=== PATIENT | male | born 1975 | race Caucasian/White ===

== ENCOUNTER 2017-11-01 21:04 | Emergency (ER) | payer SELFPAY | END 2017-11-01 21:14 | disposition left against medical advice (07) | LOC: ER 21:04 | DX: J02.9 Acute pharyngitis, unspecified (principal); Z53.21 Procedure and treatment not carried out due to patient leaving prior to being seen by health care provider ==

== ENCOUNTER 2017-11-02 03:39 | Inpatient (IN) | payer OTHER ==
[2017-11-02 04:07] LABS: HEMATOCRIT 47.4 % (39.0-53.0); HEMOGLOBIN 16.4 g/dL (13.0-17.5); MEAN CORPUSCULAR HEMOGLOBIN 34 pg (25-35); MEAN CORPUSCULAR HGB CONC 35 g/dL (31-37); MEAN CORPUSCULAR VOLUME 97 fL (79-100); PLATELET COUNT 173 x10^3/uL (140-400); RED BLOOD COUNT 4.89 x10^6/uL (4.30-5.70); RED CELL DISTRIBUTION WIDTH 13.5 % (11.5-14.5); WHITE BLOOD COUNT 8.1 x10^3/uL (4.0-11.0)
[2017-11-02 04:14] LABS: ANION GAP 5 (6-14); BLOOD UREA NITROGEN 11 mg/dL (8-26); CALCIUM 8.4 mg/dL (8.5-10.1); CARBON DIOXIDE 32 mmol/L (21-32); CHLORIDE 106 mmol/L (98-107); GFR 98.2; GLUCOSE 128 mg/dL (70-99); POTASSIUM 3.6 mmol/L (3.5-5.1); SODIUM 143 mmol/L (136-145)
[2017-11-02 04:19] LABS: INR 1.2 (0.8-1.1); PROTHROMBIN TIME PATIENT 14.2 SEC (11.7-14.0)
[2017-11-02 04:20] LABS: PARTIAL THROMBOPLASTIN TIME 36 SEC (24-38)
[2017-11-02 04:23] LABS: POC GLUCOSE 122 mg/dL (70-99)
[2017-11-02] MEDS: ASPIRIN 325 MG TABLET PO (05:46)
[2017-11-02] MEDS ORDERED: MORPHINE SULFATE 2 MG/ML DISP.SYRIN. IV (11:15)
[2017-11-02] MEDS ORDERED: ACETAMINOPHEN 325 MG TABLET. PO (11:15)
[2017-11-02] MEDS ORDERED: DOCUSATE SODIUM 100 MG CAPSULE. PO (11:15)
[2017-11-02] MEDS ORDERED: traMADol 50 MG TABLET PO (11:15)
[2017-11-02] MEDS ORDERED: ONDANSETRON PF 4 MG/2 ML VIAL. IV (11:15)
[2017-11-02] MEDS ORDERED: hydrALAZINE 20 MG/ML VIAL. IVP (11:15)
[2017-11-02] MEDS: NICOTINE 21MG PATCH. TD (11:48)
[2017-11-02] MEDS: GADOBUTROL 10 MMOL/10 ML VIAL IV (16:17)
[2017-11-02] MEDS: ENOXAPARIN 40 MG/0.4 ML SYRINGE. SQ (17:22)
[2017-11-02 18:30] LABS: BARBITURATES NEG (NEG); BENZODIAZEPINES NEG (NEG); CANNABINOIDS NEG (NEG); COCAINE NEG (NEG); METHADONE NEG (NEG); OPIATES NEG (NEG); PHENCYCLIDINE NEG (NEG)
[2017-11-02 18:32] LABS: AMPHETAMINE/METHAMPHETAMINE NEG (NEG); ETHANOL, URINE NEG (NEG)
[2017-11-02] MEDS: GABAPENTIN 100 MG CAPSULE. PO (21:18)
[2017-11-03 07:54] LABS: ADD MAN DIFF? NO
[2017-11-03 08:00] LABS: BASO # 0.1 x10^3/uL (0.0-0.2); BASO % 1 % (0-3); EOS # 0.4 x10^3/uL (0.0-0.7); EOS % 6 % (0-3); HEMATOCRIT 48.2 % (39.0-53.0); HEMOGLOBIN 16.4 g/dL (13.0-17.5); LYMPH # 2.1 x10^3/uL (1.0-4.8); LYMPH % 31 % (24-48); MEAN CORPUSCULAR HEMOGLOBIN 33 pg (25-35); MEAN CORPUSCULAR HGB CONC 34 g/dL (31-37); MEAN CORPUSCULAR VOLUME 98 fL (79-100); MONO # 0.6 x10^3/uL (0.0-1.1); MONO % 9 % (0-9); NEUT # 3.7 x10^3uL (1.8-7.7); NEUT % 54 % (31-73); PLATELET COUNT 166 x10^3/uL (140-400); RED BLOOD COUNT 4.95 x10^6/uL (4.30-5.70); WHITE BLOOD COUNT 6.9 x10^3/uL (4.0-11.0)
[2017-11-03 08:22] LABS: ANION GAP 6 (6-14); BLOOD UREA NITROGEN 8 mg/dL (8-26); CALCIUM 8.5 mg/dL (8.5-10.1); CARBON DIOXIDE 29 mmol/L (21-32); CHLORIDE 105 mmol/L (98-107); CHOLESTEROL 166 mg/dL (0-200); CREATININE 0.8 mg/dL (0.7-1.3); GLUCOSE 104 mg/dL (70-99); HDLC 33 mg/dL (40-60); LDLC 103 mg/dL (0-100); NON-HDL CHOLESTEROL 133 mg/dL (0-129); POTASSIUM 3.8 mmol/L (3.5-5.1); SODIUM 140 mmol/L (136-145); TRIGLYCERIDES 148 mg/dL (0-150); VLDLC 30 mg/dL (0-40)
[2017-11-03] MEDS: ASPIRIN ENTERIC COATED 81 MG TABLET.DR. PO (11:37)
[2017-11-03] MEDS: GABAPENTIN 100 MG CAPSULE. PO ×3 (11:37→21:02)
[2017-11-03] MEDS: NICOTINE 21MG PATCH. TD (11:38)
[2017-11-03] MEDS: GADOBUTROL 10 MMOL/10 ML VIAL IV (15:03)
[2017-11-03] MEDS: ENOXAPARIN 40 MG/0.4 ML SYRINGE. SQ (16:47)
[2017-11-03] MEDS ORDERED: SIMVASTATIN 10 MG TABLET PO (21:00)
[2017-11-03] MEDS ORDERED: ATORVASTATIN CALCIUM 20 MG TABLET PO (21:00)
[2017-11-03] MEDS: SIMVASTATIN 5 MG TABLET. PO (21:02)
[2017-11-04] MEDS: GABAPENTIN 100 MG CAPSULE. PO (10:08)
[2017-11-04] MEDS: NICOTINE 21MG PATCH. TD (10:08)
[2017-11-04] MEDS: ASPIRIN ENTERIC COATED 81 MG TABLET.DR. PO (10:08)
[2017-11-04] MEDS ORDERED: GABAPENTIN 100 MG CAPSULE. PO (15:00)
== END 2017-11-04 15:08 | disposition home or self-care (01) | DRG 74 ==
LOC: ER 03:39 → 6 SOUTH 06:20
DX: G51.0 Bell's palsy (principal); I10 Essential (primary) hypertension; E66.9 Obesity, unspecified; E78.5 Hyperlipidemia, unspecified; F17.210 Nicotine dependence, cigarettes, uncomplicated; Z79.82 Long term (current) use of aspirin; Z79.899 Other long term (current) drug therapy; Z82.49 Family history of ischemic heart disease and other diseases of the circulatory system; Z68.36 Body mass index [BMI] 36.0-36.9, adult
CPT/HCPCS: 36415; 70450; 70543; 70553; 71045; 80048; 80061; 80307; 82962; 85025; 85027; 85610; 85730; 93005; 99285; 99285-25; A9585; J1650

== ENCOUNTER 2019-04-28 20:33 | Emergency (ER) | payer SELFPAY ==
[~2019-04-28] VITALS: Ht 188 cm; Wt 127.5 kg
[~2019-04-28 20:33] MED LIST: ASPI-612 PO; GABA-585 PO; SIMV5TAB14 PO
[2019-04-28 20:50] LABS: BASO # 0.1 x10^3/uL (0.0-0.2); BASO % 1 % (0-3); EOS # 0.3 x10^3/uL (0.0-0.7); EOS % 4 % (0-3); HEMOGLOBIN 16.5 g/dL (13.0-17.5); LYMPH # 2.2 x10^3/uL (1.0-4.8); LYMPH % 23 % (24-48); MEAN CORPUSCULAR HEMOGLOBIN 33 pg (25-35); MEAN CORPUSCULAR HGB CONC 34 g/dL (31-37); MEAN CORPUSCULAR VOLUME 97 fL (79-100); MONO # 0.9 x10^3/uL (0.0-1.1); MONO % 9 % (0-9); NEUT # 5.8 x10^3/uL (1.8-7.7); NEUT % 63 % (31-73); PLATELET COUNT 175 x10^3/uL (140-400); RED BLOOD COUNT 5.07 x10^6/uL (4.30-5.70); RED CELL DISTRIBUTION WIDTH 14.6 % (11.5-14.5); WHITE BLOOD COUNT 9.3 x10^3/uL (4.0-11.0)
[2019-04-28 20:59] LABS: PROTHROMBIN TIME PATIENT 12.9 SEC (11.7-14.0)
[2019-04-28 21:00] LABS: CREATININE 0.9 mg/dL (0.7-1.3); GFR 90.8; POTASSIUM 3.7 mmol/L (3.5-5.1)
[2019-04-28 21:07] LABS: ALBUMIN/GLOBULIN RATIO 1.1 (1.0-1.7); TOTAL BILIRUBIN 0.4 mg/dL (0.2-1.0); TOTAL PROTEIN 7.6 g/dL (6.4-8.2)
--- NOTE | 2019-04-28 21:07 | RAD ---
CT brain without contrast. HISTORY: Code stroke, right facial droop, NIH 3 CT scan of brain was done without contrast. There is no intracranial hemorrhage or subdural hematoma. Ventricles are normal in size. There is no mass or shift of the midline. An acute CVA is not identified. There is mucous retention cyst in the left maxillary antrum. There is slight mucosal thickening in ethmoid and left frontal sinuses. IMPRESSION: 1. No intracranial hemorrhage or acute CVA noted. FOR INTERNAL CODING PURPOSES Critical result: Findings discussed with MIREYA LEBLANC at 04/28/2019 9:02 PM. RESULT CODE: (C) PQRS Compliance Statement: One or more of the following individualized dose reduction techniques were utilized for this examination: 1. Automated exposure control 2. Adjustment of the mA and/or kV according to patient size 3. Use of iterative reconstruction technique Electronically signed by: Kp Seth MD (04/28/2019 9:04 PM) [facility]
[2019-04-28] MEDS: IOHEXOL 350 MG/ML 100 ML VIAL. IV ONE (21:09)
--- NOTE | 2019-04-28 21:13 | PHYS DOC ---
Past Medical History Past Medical History: Other Additional Past Medical Histor: BELLS PALSY Past Surgical History: No Surgical History Alcohol Use: None Drug Use: None Adult General Chief Complaint Chief Complaint: NEURO SYMPTOMS/DEFICITS [facility] HPI 44-year-old male presents to the emergency department with complaints of right facial droop, patient has a history of Rodriguez's palsy states he feels this is similar presentation. He states he noticed his eye below but heavy yesterday and today around 7:30 8:00 he had some facial droop as well. There is no speech difficulty pressure on examination. He is unable to move his right forehead on exam as well. Patient denies any numbness and tingling in his upper extremities or lower extremity is, he has no visual disturbances. Denies any chest pain, sh ortness of breath, nausea, vomiting. Nothing makes his symptoms worse, nothing makes his symptoms better. Review of Systems Review of Systems Constitutional: Denies fever or chills [] Eyes: Denies change in visual acuity, redness, or eye pain [] Respiratory: Denies cough or shortness of breath [] Cardiovascular: No additional information not addressed in HPI [] GI: Denies abdominal pain, nausea, vomiting, bloody stools or diarrhea [] Musculoskeletal: Denies back pain or joint pain [] Integument: Denies rash or skin lesions [] Neurologic: Denies headache, right facial droop, no movement of forehead, right eye lid drooping [] All other systems were reviewed and found to be within normal limits, except as documented in this note. Current Medications Current Medications Current Medications Medications (Trade) Dose Ordered Sig/[facility] Start Time Stop Time Status Last Admin Dose Admin Info (CONTRAST GIVEN -- Rx MONITORING) 1 each PRN DAILY PRN 04/28/19 21:15 04/30/19 21:14 Iohexol (Omnipaque 350 Mg/ml) 75 ml 1X ONCE 04/28/19 21:15 04/28/19 21:16 DC 04/28/19 21:09 75 ML Allergies Allergies Allergies Coded Allergies Type Severity Reaction Last Updated Verified No Known Drug Allergies 11/02/17 No Physical Exam Physical Exam Constitutional: Well developed, well nourished, no acute distress, non-toxic appearance. [] HENT: Normocephalic, atraumatic, bilateral external ears normal, oropharynx moist, no oral exudates, nose normal. [] Eyes: PERRLA, EOMI, conjunctiva normal, no discharge. [] Cardiovascular:Heart rate regular rhythm, no murmur [] Lungs & Thorax: Bilateral breath sounds clear to auscultation [] Abdomen: Bowel sounds normal, soft, no tenderness, no masses, no pulsatile masses. [] Skin: Warm, dry, no erythema, no rash. [] Back: No tenderness, no CVA tenderness. [] Extremities: No tenderness, no edema. [] Neurologic: Alert and oriented X 3, right eyelid with drooping, right facial droop, forehead on right with no movement [] Psychologic: Affect normal, judgement normal, mood normal. [] Current Patient Data Vital Signs Vital Signs Date Time Temp Pulse Resp B/P (MAP) Pulse Ox O2 Delivery O2 Flow Rate FiO2 04/28/19 20:34 98.7 92 18 168/100 (122) 98 Room Air 98.7 Lab Values Laboratory Tests Test 04/28/19 20:41 White Blood Count 9.3 x10^3/uL (4.0-11.0) Red Blood Count 5.07 x10^6/uL (4.30-5.70) Hemoglobin 16.5 g/dL (13.0-17.5) Hematocrit 49.0 % (39.0-53.0) Mean Corpuscular Volume 97 fL (79-100) Mean Corpuscular Hemoglobin 33 pg (25-35) Mean Corpuscular Hemoglobin Concent 34 g/dL (31-37) Red Cell Distribution Width 14.6 % (11.5-14.5) H Platelet Count 175 x10^3/uL (140-400) Neutrophils (%) (Auto) 63 % (31-73) Lymphocytes (%) (Auto) 23 % (24-48) L Monocytes (%) (Auto) 9 % (0-9) Eosinophils (%) (Auto) 4 % (0-3) H Basophils (%) (Auto) 1 % (0-3) Neutrophils # (Auto) 5.8 x10^3/uL (1.8-7.7) Lymphocytes # (Auto) 2.2 x10^3/uL (1.0-4.8) Monocytes # (Auto) 0.9 x10^3/uL (0.0-1.1) Eosinophils # (Auto) 0.3 x10^3/uL (0.0-0.7) Basophils # (Auto) 0.1 x10^3/uL (0.0-0.2) Prothrombin Time 12.9 SEC (11.7-14.0) Prothrombin Time INR 1.0 (0.8-1.1) Activated Partial Thromboplast Time 31 SEC (24-38) Sodium Level 140 mmol/L (136-145) Potassium Level 3.7 mmol/L (3.5-5.1) Chloride Level 104 mmol/L (98-107) Carbon Dioxide Level 28 mmol/L (21-32) Anion Gap 8 (6-14) Blood Urea Nitrogen 7 mg/dL (8-26) L Creatinine 0.9 mg/dL (0.7-1.3) Estimated GFR (Cockcroft-Gault) 90.8 BUN/Creatinine Ratio 8 (6-20) Glucose Level 108 mg/dL (70-99) H Calcium Level 9.0 mg/dL (8.5-10.1) Total Bilirubin 0.4 mg/dL (0.2-1.0) Aspartate Amino Transferase (AST) 31 U/L (15-37) Alanine Aminotransferase (ALT) 38 U/L (16-63) Alkaline Phosphatase 80 U/L (46-116) Troponin I Quantitative < 0.017 ng/mL (0.000-0.055) Total Protein 7.6 g/dL (6.4-8.2) Albumin 4.0 g/dL (3.4-5.0) Albumin/Globulin Ratio 1.1 (1.0-1.7) Laboratory Tests 04/28/19 20:41 Laboratory Tests 04/28/19 20:41 EKG EKG [] Radiology/Procedures Radiology/Procedures [facility] [address] [place], [place] [id number] IMAGING REPORT Signed PATIENT: GINA SPRAGUEUNT: [id number] : 1975 LOCATION: ER AGE: 44 SEX: M EXAM STATUS: REG ER ORD. PHYSICIAN: MIREYA LEBLANC MD REASON: NIH 3, code stroke PROCEDURE: CT CODE STROKE HEAD WO CT brain without contrast. HISTORY: Code stroke, right facial droop, NIH 3 CT scan of brain was done without contrast. There is no intracranial hemorrhage or subdural hematoma. Ventricles are normal in size. There is no mass or shift of the midline. An acute CVA is not identified. There is mucous retention cyst in the left maxillary antrum. There is slight mucosal thickening in ethmoid and left frontal sinuses. IMPRESSION: 1. No intracranial hemorrhage or acute CVA noted. FOR INTERNAL CODING PURPOSES Critical result: Findings discussed with MIREYA LEBLANC at 04/28/2019 9:02 PM. RESULT CODE: (C) PQRS Compliance Statement: One or more of the following individualized dose reduction techniques were utilized for this examination: 1. Automated exposure control 2. Adjustment of the mA and/or kV according to patient size 3. Use of iterative reconstruction technique Electronically signed by: Akila Seth MD (04/28/2019 9:04 PM) [facility] DICTATED and SIGNED BY: AKILA SETH MD DATE: 04/28/192103 [] [facility] [address] [place], [place] [id number] IMAGING REPORT Signed PATIENT: GINA SPRAGUEUNT: [id number] : 1975 LOCATION: ER AGE: 44 SEX: M EXAM STATUS: REG ER ORD. PHYSICIAN: MIREYA LEBLANC MD REASON: NIH 3, code stroke PROCEDURE: CTA HEAD/NECK - CODE STROKE CT arteriogram of the carotid arteries, CT arteriogram of the brain. HISTORY: Code stroke, right facial droop CT arteriogram the carotid arteries was done using 75 mL Omnipaque contrast. Sagittal and coronal MIP images were reconstructed, three-dimensional images were reconstructed. Origins of the great vessels at the aortic arch are widely patent. There are normal size vertebral arteries. Both vertebral arteries supply flow to the basilar artery. Common carotid arteries are unremarkable. There is no stenosis at the carotid bifurcations on either side. Thyroid is homogeneous. There is no adenopathy or mass in the neck. Parotid and submandibular glands are unremarkable. C-spine is in normal alignment. IMPRESSION: 1. No stenosis at the carotid bifurcations. 2. Normal vertebral arteries. End impression CT arteriogram of the brain CT arteriogram of the brain was done following the CT arteriogram the carotid arteries with the same contrast. Sagittal and coronal MIP images were reconstructed. Three-dimensional images were reconstructed. Basilar artery is normal. There are normal communications between the basilar artery and posterior cerebral arteries. There is a prominent posterior communicating artery on the right with a smaller but normal sized posterior communicating artery on the left. Both posterior cerebral arteries are patent. Intracranial internal carotid arteries are patent. There are normal anterior cerebral arteries without stenosis. Middle cerebral arteries are normal without a major vessel occlusion. Major intracranial veins are patent. There is no pathologic enhancement. IMPRESSION: 1. No intracranial aneurysm evident. 2. No pathologic enhancement. 3. No major vessel occlusion. PQRS Compliance Statement - Stenosis calculations for CT, MR and conventional angiography are based upon measurement of the distal ICA diameter in accordance with the NASCET methodology. PQRS Compliance Statement: One or more of the following individualized dose reduction techniques were utilized for this examination: 1. Automated exposure control 2. Adjustment of the mA and/or kV according to patient size 3. Use of iterative reconstruction technique Electronically signed by: Akila Seth MD (04/28/2019 9:17 PM) [facility] DICTATED and SIGNED BY: AKILA SETH MD DATE: 04/28/192116 Course & Med Decision Making Course & Med Decision Making Pertinent Labs and Imaging studies reviewed. (See chart for details) []44-year-old male presents to the emergency department with complaints of right facial droop, patient has a history of Rodriguez's palsy states he feels this is similar presentation. He states he noticed his eye below but heavy yesterday and today around 7:30 8:00 he had some facial droop as well. There is no speech difficulty pressure on examination. He is unable to move his right forehead on exam as well. Patient denies any numbness and tingling in his upper extremities or lower extremity is, he has no visual disturbances. Denies any chest pain, shortness of breath, nausea, vomiting. Nothing makes his symptoms worse, nothing makes his symptoms better. Dragon Disclaimer Dragon Disclaimer This electronic medical record was generated, in whole or in part, using a voice recognition dictation system. NIHSS Stroke Scale NIH Stroke Scale: NIH Stroke Scale Response (Comments) Value Level of Consciousness: 0 Alert/Responsive 0 LOC Questions: 0 Answers both correctly 0 LOC Commands: 0 Performs both tasks 0 Best Gaze: 0 Normal 0 Visual: 0 No visual loss 0 Facial Palsy: 1 Minor paralysis 1 Motor - Left Arm 0 No drift 0 Motor - Right Arm 0 No drift 0 Motor - Left Leg 0 No drift 0 Motor: Right Leg 0 No drift 0 Limb Ataxia: 0 Absent 0 Sensory: 1 Mid to moderate loss 1 Best Language: 0 Normal 0 Dysathria: 0 Normal 0 Extinction and Inattention: 0 Normal 0 Total 2 Departure Departure Impression: Primary Impression: Rodriguez palsy Additional Impression: Hypertension Disposition: 01 HOME, SELF-CARE Condition: STABLE Referrals: NO PCP (PCP) Patient Instructions: Rodriguez's Palsy Additional Instructions: Recommend follow up with PCP 3 - 5 days Return to the ER with worsening symptoms, intractable pain, fever, altered mental status Tylenol/Motrin as needed for pain Take antivirals/steroids as directed Scripts Acyclovir (ACYCLOVIR) 400 Mg Tablet 1 TAB PO QID for 7 Days, #28 TAB Prov: MIREYA LEBLANC MD 04/28/19 Problem Qualifiers Additional Impression: Hypertension Hypertension type: essential hypertension Qualified Codes: I10 - Essential (primary) hypertension MIREYA LEBLANC MD Apr 28, 2019 21:13
[2019-04-28] MEDS ORDERED: CONTRAST GIVEN. MC PRN (21:15)
--- NOTE | 2019-04-28 21:20 | RAD ---
CT arteriogram of the carotid arteries, CT arteriogram of the brain. HISTORY: Code stroke, right facial droop CT arteriogram the carotid arteries was done using 75 mL Omnipaque contrast. Sagittal and coronal MIP images were reconstructed, three-dimensional images were reconstructed. Origins of the great vessels at the aortic arch are widely patent. There are normal size vertebral arteries. Both vertebral arteries supply flow to the basilar artery. Common carotid arteries are unremarkable. There is no stenosis at the carotid bifurcations on either side. Thyroid is homogeneous. There is no adenopathy or mass in the neck. Parotid and submandibular glands are unremarkable. C-spine is in normal alignment. IMPRESSION: 1. No stenosis at the carotid bifurcations. 2. Normal vertebral arteries. End impression CT arteriogram of the brain CT arteriogram of the brain was done following the CT arteriogram the carotid arteries with the same contrast. Sagittal and coronal MIP images were reconstructed. Three-dimensional images were reconstructed. Basilar artery is normal. There are normal communications between the basilar artery and posterior cerebral arteries. There is a prominent posterior communicating artery on the right with a smaller but normal sized posterior communicating artery on the left. Both posterior cerebral arteries are patent. Intracranial internal carotid arteries are patent. There are normal anterior cerebral arteries without stenosis. Middle cerebral arteries are normal without a major vessel occlusion. Major intracranial veins are patent. There is no pathologic enhancement. IMPRESSION: 1. No intracranial aneurysm evident. 2. No pathologic enhancement. 3. No major vessel occlusion. PQRS Compliance Statement - Stenosis calculations for CT, MR and conventional angiography are based upon measurement of the distal ICA diameter in accordance with the NASCET methodology. PQRS Compliance Statement: One or more of the following individualized dose reduction techniques were utilized for this examination: 1. Automated exposure control 2. Adjustment of the mA and/or kV according to patient size 3. Use of iterative reconstruction technique Electronically signed by: Kp Seth MD (04/28/2019 9:17 PM) [facility]
[2019-04-28] MEDS ORDERED: ACYC400T PO (21:46)
[2019-04-28 21:53] VITALS: BP 160/88
--- NOTE | 2019-04-29 06:38 | EKG ---
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
== END 2019-04-28 21:57 | disposition home or self-care (01) ==
LOC: ER 20:33
DX: G51.0 Bell's palsy (principal); I10 Essential (primary) hypertension; H02.401 Unspecified ptosis of right eyelid
CPT/HCPCS: 36415; 70450; 70496; 70498; 80053; 84484; 85025; 85610; 85730; 93005; 99285; Q9967

== ENCOUNTER 2019-08-26 20:54 | Emergency (ER) | payer BC ==
[~2019-08-26] VITALS: Ht 188 cm; Wt 127.0 kg
[~2019-08-26 20:54] MED LIST changes: +ACYC400T PO
[2019-08-26] MEDS ORDERED: KETOROLAC 60 MG/2 ML VIAL. IM ONE (22:00)
[2019-08-26] MEDS ORDERED: ORPHENADRINE CITRATE 60 MG/2 ML VIAL. IM ONE (22:00)
[2019-08-26] MEDS ORDERED: fentaNYL PF VIAL 100 MCG/2 ML VIAL IM ONE (22:00)
[2019-08-26] MEDS ORDERED: DICL50TA4 PO (22:07)
[2019-08-26] MEDS ORDERED: HYDR-3164 PO (22:07)
[2019-08-26] MEDS ORDERED: ORPH100T PO (22:07)
--- NOTE | 2019-08-26 22:07 | PHYS DOC ---
Past Medical History Past Medical History: Other Additional Past Medical Histor: BELLS PALSY Past Surgical History: No Surgical History Smoking Status: Current Every Day Smoker Alcohol Use: None Drug Use: None General Adult EDM: Chief Complaint: BACK INJURY HPI: HPI: Patient is a 44 year old male who presents with complaint of lower back pain that radiates down into right leg that started earlier today. Patient states that he does a lot of lifting at work with repetitive motion and twisting. Patient denies any saddle anesthesia and has had no loss of bowel or bladder control. He states that pain is about an 8 out of 10. He denies any abdominal pain, nausea or vomiting. He denies any fever. He also denies urinary discomfort. [] Review of Systems: Review of Systems: Constitutional: Denies fever or chills. [] Respiratory: Denies cough or shortness of breath. [] Cardiovascular: Denies chest pain or edema. [] : Denies dysuria. [] Musculoskeletal: Complains of right-sided lower back pain. [] Integument: Denies rash. [] Neurologic: Denies headache, focal weakness or sensory changes. [] Heart Score: Risk Factors: Risk Factors: DM, Current or recent (<one month) smoker, HTN, HLP, family history of CAD, obesity. Risk Scores: Score 0 - 3: 2.5% MACE over next 6 weeks - Discharge Home Score 4 - 6: 20.3% MACE over next 6 weeks - Admit for Clinical Observation Score 7 - 10: 72.7% MACE over next 6 weeks - Early Invasive Strategies Current Medications: Current Medications Medications (Trade) Dose Ordered Sig/[facility] Start Time Stop Time Status Last Admin Dose Admin Fentanyl Citrate (Fentanyl 2ml Vial) 50 mcg 1X ONCE 08/26/19 22:00 08/26/19 22:01 DC 08/26/19 21:52 50 MCG Ketorolac Tromethamine (Toradol Im) 60 mg 1X ONCE 08/26/19 22:00 08/26/19 22:01 DC 08/26/19 21:53 60 MG Orphenadrine Citrate (Norflex) 60 mg 1X ONCE 08/26/19 22:00 08/26/19 22:01 DC 08/26/19 21:52 60 MG Allergies: Allergies: Allergies Coded Allergies Type Severity Reaction Last Updated Verified No Known Drug Allergies 08/26/19 No Physical Exam: PE: Constitutional: Well developed, well nourished, no acute distress, non-toxic appearance. [] Neck: Normal range of motion, no tenderness, supple, no stridor. [] Cardiovascular: Regular rate and rhythm [] Lungs & Thorax: Bilateral breath sounds clear to auscultation [] Abdomen: Bowel sounds normal, soft, no tenderness. [] Skin: Warm, dry, no erythema, no rash. [] Back: There is tenderness to palpation with palpable spasm noted in the lumbar paraspinal musculature. [] Neurologic: Alert and oriented X 3, no focal deficits noted. [] Current Patient Data: Vital Signs: Vital Signs Date Time Temp Pulse Resp B/P (MAP) Pulse Ox O2 Delivery O2 Flow Rate FiO2 08/26/19 21:36 98.0 96 18 160/94 (116) 97 Room Air 98.0 EKG: EKG: [] Radiology/Procedures: Radiology/Procedures: [] Course & Med Decision Making: Course & Med Decision Making Pertinent Labs and Imaging studies reviewed. (See chart for details) [] Dragon Disclaimer: Dragon Disclaimer: This electronic medical record was generated, in whole or in part, using a voice recognition dictation system. Departure Departure Impression: Primary Impression: Lumbosacral strain Qualified Codes: S39.012A - Strain of muscle, fascia and tendon of lower back, initial encounter Disposition: HOME, SELF-CARE Condition: STABLE Referrals: NO PCP (PCP) Patient Instructions: Lumbosacral Strain Scripts Orphenadrine Citrate (ORPHENADRINE CITRATE) 100 Mg Tablet.er 1 TAB PO BID PRN for MUSCLE SPASMS, #14 TAB Prov: MAXWELL MALONE Jr. DO 08/26/19 Hydrocodone/Apap 5-325 (NORCO 5-325 TABLET) 1 Each Tablet 1-2 EACH PO PRN Q6HRS PRN for PAIN, #15 as needed for pain Prov: MAXWELL MALONE Jr. DO 08/26/19 Diclofenac Sodium (DICLOFENAC SODIUM) 50 Mg Tablet.dr 1 TAB PO BID PRN for PAIN, #20 TAB Prov: MAXWELL MALONE Jr. DO 08/26/19 MAXWELL MALONE Jr. DO August 26, 2019 22:07
[2019-08-26 22:16] VITALS: BP 154/87
== END 2019-08-26 22:12 | disposition home or self-care (01) ==
LOC: ER 20:54
DX: S39.012A Strain of muscle, fascia and tendon of lower back, initial encounter (principal); F17.200 Nicotine dependence, unspecified, uncomplicated; X50.9XXA Other and unspecified overexertion or strenuous movements or postures, initial encounter; Y93.89 Activity, other specified; Y92.89 Other specified places as the place of occurrence of the external cause; Y99.8 Other external cause status
CPT/HCPCS: 96372; 99284; J1885; J2360; J3010

== ENCOUNTER 2019-09-03 00:41 | Emergency (ER) | payer BC ==
[~2019-09-03] VITALS: Ht 188 cm; Wt 127.2 kg
[~2019-09-03 00:41] MED LIST changes: +DICL50TA4 PO; +HYDR-3164 PO; +ORPH100T PO
[2019-09-03] MEDS ORDERED: METH4TAB2 PO (01:11)
[2019-09-03] MEDS ORDERED: HYDR-3164 PO (01:11)
[2019-09-03] MEDS ORDERED: ORPH100T PO (01:11)
[2019-09-03] MEDS ORDERED: INDO50CA15 PO (01:11)
--- NOTE | 2019-09-03 01:11 | PHYS DOC ---
Past Medical History Past Medical History: Other Additional Past Medical Histor: BELLS PALSY Past Surgical History: No Surgical History Smoking Status: Current Every Day Smoker Alcohol Use: None Drug Use: None General Adult EDM: Chief Complaint: BACK PAIN OR INJURY HPI: HPI: Patient is a 44 year old male who presents with complaint of lower back pain for the last couple of days. Patient was seen about a week ago for the same complaint and had received shots as well as prescriptions and states his symptoms had for the most part resolved but he has been working, picking up heavy boxes at [employer] for the last 3 days and complains of symptoms recurring yesterday. He states that the burning and tingling that had been going down his right leg is not so prominent at this time but he has more pain in the left lumbar region. He denies any loss of bowel or bladder control. Patient rates pain is moderate. [] Review of Systems: Review of Systems: Constitutional: Denies fever or chills. [] Respiratory: Denies cough or shortness of breath. [] Cardiovascular: Denies chest pain or edema. [] : Denies dysuria. [] Musculoskeletal: Complains of lower back pain. [] Integument: Denies rash. [] Neurologic: Denies headache, focal weakness or sensory changes. [] Heart Score: Risk Factors: Risk Factors: DM, Current or recent (<one month) smoker, HTN, HLP, family history of CAD, obesity. Risk Scores: Score 0 - 3: 2.5% MACE over next 6 weeks - Discharge Home Score 4 - 6: 20.3% MACE over next 6 weeks - Admit for Clinical Observation Score 7 - 10: 72.7% MACE over next 6 weeks - Early Invasive Strategies Allergies: Allergies: Allergies Coded Allergies Type Severity Reaction Last Updated Verified No Known Drug Allergies 08/26/19 No Physical Exam: PE: Constitutional: Well developed, well nourished, no acute distress, non-toxic appearance. [] Cardiovascular: Regular rate and rhythm [] Lungs & Thorax: Bilateral breath sounds clear to auscultation [] Skin: Warm, dry, no erythema, no rash. [] Back: There is tenderness to palpation in the left lumbar paraspinal musculature. [] Current Patient Data: Vital Signs: Vital Signs Date Time Temp Pulse Resp B/P (MAP) Pulse Ox O2 Delivery O2 Flow Rate FiO2 09/03/19 00:48 97.8 96 20 153/94 (113) 96 Room Air 97.8 EKG: EKG: [] Radiology/Procedures: Radiology/Procedures: [] Course & Med Decision Making: Course & Med Decision Making Pertinent Labs and Imaging studies reviewed. (See chart for details) [] [place] Disclaimer: [place] Disclaimer: This electronic medical record was generated, in whole or in part, using a voice recognition dictation system. Departure Departure Impression: Primary Impression: Lumbosacral strain Qualified Codes: S39.012D - Strain of muscle, fascia and tendon of lower back, subsequent encounter Disposition: HOME, SELF-CARE Condition: STABLE Referrals: NO PCP (PCP) Patient Instructions: Lumbosacral Strain Scripts Indomethacin (INDOMETHACIN) 50 Mg Capsule 1 CAP PO TID PRN for PAIN for 10 Days, #30 CAP 0 Refills with food Prov: MAXWELL MALONE Jr. DO 09/03/19 Orphenadrine Citrate (ORPHENADRINE CITRATE) 100 Mg Tablet.er 1 TAB PO BID PRN for MUSCLE SPASMS, #14 TAB Prov: MAXWELL MALONE Jr. DO 09/03/19 Hydrocodone/Apap 5-325 (NORCO 5-325 TABLET) 1 Each Tablet 1-2 EACH PO PRN Q6HRS PRN for PAIN, #15 as needed for pain Prov: MAXWELL MALONE Jr. DO 09/03/19 Methylprednisolone (MEDROL) 4 Mg Tab.ds.pk 1 PKG PO UD, #1 PKG Prov: MAXWELL MALONE Jr. DO 09/03/19 MAXWELL MALONE Jr. DO September 03, 2019 01:11
[2019-09-03] MEDS ORDERED: KETOROLAC 60 MG/2 ML VIAL. IM ONE (01:15)
[2019-09-03] MEDS ORDERED: ORPHENADRINE CITRATE 60 MG/2 ML VIAL. IM ONE (01:15)
[2019-09-03] MEDS ORDERED: DEXAMETHASONE SOD PHOS 20 MG/5 ML VIAL. IM ONE (01:15)
[2019-09-03 01:17] VITALS: BP 156/95
== END 2019-09-03 01:21 | disposition home or self-care (01) ==
LOC: ER 00:41
DX: S39.012D Strain of muscle, fascia and tendon of lower back, subsequent encounter (principal); R20.2 Paresthesia of skin; F17.200 Nicotine dependence, unspecified, uncomplicated; X50.9XXD Other and unspecified overexertion or strenuous movements or postures, subsequent encounter
CPT/HCPCS: 96372; 99284; J1100; J1885; J2360